=== PATIENT | female | born 1985 | race Caucasian/White ===

== ENCOUNTER → 2017-07-25 | Outpatient (CLI) | payer OTHER ==
--- NOTE | 2017-07-25 23:16 | MR ---
EXAMINATION TYPE: MR brain/cspine wo/w DATE OF EXAM: 07/25/2017 COMPARISON: NONE HISTORY: Pt has No Symptoms...Check up MS follow-up TECHNIQUE: Multiplanar, multisequence images of the brain and brainstem is performed without and with IV contras t, utilizing 6.0 mL intravenous Gadavist . FINDINGS: Brain On the FLAIR and T2 images there is extensive abnormal increased signal in the periventricular white matter. There is coalescent density that measures up to 1.5 cm in thickness. There is also involvemen t of the corpus callosum. There is thinning of corpus callosum. There is no evidence of a cortical in farct. Brainstem has normal signal pattern. Sella turcica appears normal. The contrast images show no pathologic enhancement. Cervical spine The cervical vertebrae normal alignment. Disc spaces are fairly normal. Brainstem is intact. There is no spinal stenosis. There is no evidence of cervical disc herniation. There is abnormal increased si gnal on the T2 images within the cervical cord at C6 and C7. This is in the midline and consistent wi th a syrinx. Contrast images show no pathologic enhancement. There is no evidence of a mass in the ce rvical cord. CONCLUSION: Extensive: Extensive coalescent matter lesions consistent with demyelinating disease in this relative ly young patient. There is no significant change compared to old MR scan of 10/29/2014. I do not see an y new disease. There is a small syrinx in the cervical spinal cord at C6-7 that appears stable compared to old exam. No evidence of any new cervical spine disease.
== END | disposition home or self-care (01) ==
LOC: RADMRIMAIN 19:24
PROVIDERS: ATTEND Psychiatry & Neurology Neurology
DX: G95.0 Syringomyelia and syringobulbia (principal); G93.9 Disorder of brain, unspecified; G35 Multiple sclerosis
CPT/HCPCS: 70553; 72156; A9581

== ENCOUNTER → 2019-05-06 | Outpatient (CLI) | payer OTHER ==
--- NOTE | 2019-05-06 15:00 | MR ---
MRI BRAIN WITH CONTRAST CLINICAL HISTORY: 07/25/2017 TECHNIQUE: Multiplanar, multisequence imaging of the brain and brainstem is performed without and wit h IV contrast, 7.5 mL Gadavist is administered intravenously. Demyelinating disease protocol with ad ditional Sagittal Flair sequence performed. Comparison: 07/25/2017 FINDINGS: T2 Lesions Present : Yes Approximate Number of Lesions: Too numerous and too confluent account Locations Identified : Pericallosal, Periventricular, Juxtacortical, temporal. Size of Largest Lesion(s): Largest lesion not confluent left centrum semioval bilaterally measures 1.5 cm unchanged from prior s tudy. Largest lesion right frontal region measures 1.5 cm unchanged from prior study. Enhancing Lesion(s) Present: No Change from Prior: No interval change Diffusion weighted images demonstrate no evidence of a recent infarct or other diffusion abnormality. There is no worrisome extra-axial fluid collection. The ventricular system and cisternal spaces ar e normal in size and appearance. The brain volume is age appropriate. Midline structures demonstrate normal morphology. The craniocervical junction appears within normal limits. Post contrast images demonstrate no abnormal enhancement. The dural venous sinuses appear pa tent. Because retention cyst or polyp left maxillary sinus with mild mucosal thickening. IMPRESSION: 1. Stable changes of advanced multiple sclerosis.
== END | disposition home or self-care (01) ==
LOC: RADMRIMAIN 13:05
PROVIDERS: ATTEND Psychiatry & Neurology Neurology
DX: G35 Multiple sclerosis (principal)
CPT/HCPCS: 70553

== ENCOUNTER → 2021-04-10 | Outpatient (CLI) | payer OTHER ==
--- NOTE | 2021-04-11 04:26 | MR ---
EXAMINATION TYPE: MR brain wo/w con DATE OF EXAM: 04/10/2021 COMPARISON: 05/06/2019 HISTORY: MS follow up, history of weakness and numbness of right side. CONTRAST: Standard multiplanar, multisequence MRI departmental protocol utilizing 7.5 mL intravenous Gadavist g adolinium contrast. Ventricles have normal size. There is no mass effect nor midline shift. There is no evidence of intra cranial hemorrhage. There is extensive abnormal white matter increased signal around the lateral vent ricles. There is coalescent areas that measure up to 2 cm. There is 1 cm area of cortical increased s ignal in the lateral right temporal lobe. The brainstem is intact. Cerebellum is intact. There is thi nning of the corpus callosum with extensive increased signal. Diffusion images show no sign of an acute infarct. I see no pathologic enhancement. There is normal e nhancement of the venous sinuses. IMPRESSION: Extensive coalescent white matter increased signal around the lateral ventricles and also involving t he corpus callosum and consistent with severe demyelinating disease. This appears not significantly d ifferent than old exam.
== END | disposition home or self-care (01) ==
LOC: RADMRIMAIN 09:52
PROVIDERS: ATTEND Psychiatry & Neurology Neurology
DX: G35 Multiple sclerosis (principal)
CPT/HCPCS: 70553; A9585

== ENCOUNTER 2021-12-30 05:38 | Inpatient (IN) | payer OTHER ==
[2021-12-27 15:59] VITALS: BMI 32.3
--- NOTE | 2021-12-29 18:19 | P.HPOB ---
History of Present Illness H&P Date: 12/29/21 Chief Complaint: Repeat section This patient is a pleasant 36-year-old 4 para 2 female estimated date of confinement 01/06/2002 estimated gestational age 39-0/7 weeks who presents to labor and delivery for elective repeat section. Patient's care was per Dr. Ordoñez until approximately 25 weeks. She subsequent a transferred to dc after his departure. Patient's care is complicated by maternal multiple sclerosis. She also has used marijuana on and off throughout the . otherwise has been uncomplicated. Patient had a previous section with her second for breech presentation as requested repeat . Review of Systems Genitourinary: Reports Menstruation: Reports amenorrhea Past Medical History Past Medical History: GERD/Reflux, Neurologic Disorder Additional Past Medical History / Comment(s): Farideh (STATES NO CURRENT SYMPTOMS), LMP MARCH 2021 History of Any Multi-Drug Resistant Organisms: None Reported Past Surgical History: Section Additional Past Surgical History / Comment(s): wisdom teeth Past Anesthesia/Blood Transfusion Reactions: No Reported Reaction Past Psychological History: No Psychological Hx Reported Smoking Status: Current every day smoker Past Alcohol Use History: None Reported Additional Past Alcohol Use History / Comment(s): SMOKES 1/2 PPD, STARTED SMOKING AGE 16 Past Drug Use History: Marijuana Additional Drug Use History / Comment(s): OCCASIONAL MARIJUANA. - Past Family History Mother Family Medical History: No Reported History Medications and Allergies Home Medications Medication Instructions Recorded Confirmed Type Vit No.124/Iron/Folic 1 each PO DAILY 06/18/15 12/27/21 History [ Vitamin Tablet] Acetaminophen [Tylenol Extra 500 - 1,000 mg PO DIRECTED PRN 12/27/21 12/27/21 History Strength] Calcium Carbonate [Tums] 500 mg PO DIRECTED PRN 12/27/21 12/27/21 History Allergies Allergy/AdvReac Type Severity Reaction Status Date / Time No Known Allergies Allergy Verified 12/27/21 15:49 Exam - OBG Physical Exam Abdomen: bowel sounds normal, no diffuse tenderness, no bruit present, no guarding noted, no hepatomegaly, no splenomegaly, no mass Vulva: both: normal Vagina: normal moisture, no discharge Cervix: no lesion, no discharge Uterus: enlarged (Fundal height is 38 cm) Results blood work shows she is O positive, rubella immune, RPR nonreactive, hepatitis B negative, HIV is nonreactive, Glucola was 150 with a normal three- hour gtt., group B strep was negative, ultrasounds of shown normal growth and anatomy. Assessment and Plan Assessment: This is a pleasant 36-year-old 4 para 2 female 39-0/7 weeks gestation with previous section requesting repeat. Patient also has a history of multiple sclerosis and I have discussed this with the patient and I have just most recently discuss with anesthesia. Most likely after reviewing the MRI there are going to recommend general anesthetic for delivery. Patient does understand the surgery and risks including risks of infection, bleeding, possibl e injury bowel, bladder, vessels, and/or other organs. All the patient's questions are answered and a written consent is obtained. Patient also has history of substance abuse and we'll check a toxicology screen. (1) 39 weeks gestation of Status: Acute Code(s): Z3A.39 - 39 WEEKS GESTATION OF SNOMED Code(s): 90471692 (2) Previous delivery affecting Status: Acute Code(s): O34.219 - MATERNAL CARE FOR UNSP TYPE SCAR FROM PREVIOUS DEL SNOMED Code(s): 790187451 (3) Multiple sclerosis Status: Acute Code(s): G35 - MULTIPLE SCLEROSIS SNOMED Code(s): 75241504 (4) Substance abuse complicating in third trimester, antepartum Status: Acute Code(s): O99.323 - DRUG USE COMPLICATING , THIRD TRIMESTER SNOMED Code(s): 27540706
[2021-12-30] MEDS ORDERED: CITRIC ACID-SODIUM CITRATE 15 ML CUP PO ONE (06:01)
[2021-12-30] MEDS ORDERED: LACTATED RINGERS 1,000 ML IV ONE (06:01)
[2021-12-30 06:14] LABS: Basophils # (A) 0.1 k/uL (0-0.2); Basophils % (A) 1 %; Eosinophils # (A) 0.3 k/uL (0-0.7); Eosinophils % (A) 2 %; HCT 38.9 % (34.0-46.0); HGB 12.9 gm/dL (11.4-16.0); Lymphocytes # (A) 2.2 k/uL (1.0-4.8); Lymphocytes % (A) 20 %; MCHC 33.3 g/dL (31.0-37.0); MCV 96.3 fL (80.0-100.0); Mean Platelet Volume 8.2; Monocytes # (A) 0.5 k/uL (0-1.0); Monocytes % (A) 5 %; Neutrophils # (A) 7.6 k/uL (1.3-7.7); Neutrophils % (A) 70 %; Platelet Count 209 k/uL (150-450); RBC 4.04 m/uL (3.80-5.40); RDW 13.1 % (11.5-15.5); WBC 10.9 k/uL (3.8-10.6)
[2021-12-30] MEDS: LACTATED RINGERS 1,000 ML IV SCH ×2 (07:22→20:28)
[2021-12-30] MEDS ORDERED: diphenhydrAMINE 25 MG CAP PO PRN (07:47)
[2021-12-30] MEDS ORDERED: diphenhydrAMINE 50 MG/ML 1 ML VIAL IVP PRN (07:47)
[2021-12-30] MEDS ORDERED: METOCLOPRAMIDE 5 MG/ML 2 ML VIAL IVP PRN (07:47)
[2021-12-30] MEDS ORDERED: ONDANSETRON 4 MG/2 ML VIAL IVP PRN (07:47)
[2021-12-30] MEDS ORDERED: ZOLPIDEM 5 MG TAB PO PRN (07:47)
[2021-12-30] MEDS ORDERED: NALOXONE 0.4 MG/ML 1 ML VIAL IV PRN (07:47)
[2021-12-30] MEDS ORDERED: LANOLIN CREAM 5 GM TUBE TOPICAL PRN (07:47)
[2021-12-30] MEDS ORDERED: SIMETHICONE 80 MG CHEWABLE PO PRN (07:47)
[2021-12-30] MEDS ORDERED: HYDROmorphone PCA 10 MG/50 ML BAG IV PRN (07:47)
[2021-12-30] MEDS ORDERED: ONDANSETRON 4 MG/2 ML VIAL ONE (07:56)
[2021-12-30] MEDS ORDERED: NALBUPHINE 10 MG/ML (1 ML AMP) ONE (07:56)
[2021-12-30] MEDS ORDERED: SUCCINYLCHOLINE CHLORIDE 100 MG/5 ML SYR IV ONE (07:56)
[2021-12-30] MEDS ORDERED: HYDROmorphone (PF) 1 MG/ML ONE (07:56)
[2021-12-30] MEDS ORDERED: OXYTOCIN 30 UNITS/500 ML NS BAG IV ONE (07:56)
[2021-12-30] MEDS ORDERED: KETOROLAC 15 MG/ML 1 ML VIAL ONE (07:56)
[2021-12-30] MEDS ORDERED: fentaNYL (PF) 50 MCG/ML 2 ML AMP ONE (07:56)
[2021-12-30] MEDS ORDERED: PROPOFOL 10 MG/ML 20 ML VIAL IV ONE (07:56)
[2021-12-30] MEDS ORDERED: OXYTOCIN 30 UNITS/500 ML NS 30 UNIT in SALINE 1 500ML.BAG IV SCH (08:00)
[2021-12-30 08:12] LABS: Amphetamine Screen,Urine Not Detected (NotDetected); Barbiturate Screen,Urine Not Detected (NotDetected); Benzodiazepines Screen,Urine Not Detected (NotDetected); Cocaine Screen,Urine Not Detected (NotDetected); Methadone Screen, Urine Not Detected (NotDetected); Opiate Screen,Urine Not Detected (NotDetected); Oxycodone Screen, Urine Not Detected (NotDetected); Phencyclidine Screen,Urine Not Detected (NotDetected); Tricyclic Antidepressant,Urine Not Detected (NotDetected); Urn Cannabinoid Scrn Detected (NotDetected)
--- NOTE | 2021-12-30 08:47 | P.OP ---
Date of Procedure: 12/30/21 Preoperative Diagnosis: #1: 39-0/7 week intrauterine . #2: Previous section desires repeat. #3: Maternal multiple sclerosis. #4: Substance abuse Postoperative Diagnosis: Same Procedure(s) Performed: Repeat low transverse section Anesthesia: ALONDRA Surgeon: Artis Parnell Zone Supervisor Firearms #1: Rosalie Gonzales Estimated Blood Loss (ml): 600 Pathology: other (Placenta) Condition: stable Disposition: floor Indications for Procedure: Please see dictated H&P for intimate details of this patient's admission. In brief summary this is a pleasant 36-year-old multigravida patient who was admitted to labor and delivery for requested repeat section. Patient has total sclerosis and therefore does need general anesthetic for delivery. Patient understands also the risks of surgery including risks of infection, bleeding, possible injury bowel, bladder, vessels, and/or other organs. All the patient's questions are answered written consent is obtained. Operative Findings: This is a vigorous viable male Apgars 8 and 9 delivery time was 0809 hrs. Description of Procedure: This patient has a Gurrola catheter placed to straight drain. She is subsequently taken to the operating room where a timeout is done. Patient is laid in the supine position and she has abdominal prep and drape. With all surgeons and ancillary staff in place, she subsequent undergoes general endotracheal anesthesia without incident. With adequate level of anesthesia, scalpels taken the previous Pfannenstiel incision is incised. A second scalpel is taken down the fascia and the fascia scored with a knife. Fascial incision extended bilaterally using the Vance scissors. Fascia is dissected off the rectus muscles sharply. Rectus muscles are the peritoneum identified and entered sharply. Peritoneal incision extended superior and inferior without difficulty. Bladder blade is then placed. Bladder peritoneum was taken sharply off the lower uterine segment. Scalpels and taken a low transverse uterine incision is then made. A hemostat was then used to enter the uterine cavity bluntly and there is loss of clear fluid. The uterine incision is extended bluntly. 's head was guided through the incision with fundal pressure. Mouth and nares are bulb suctioned. There is a body cord but no evidence of a nuchal cord. With more fundal pressure deliver the rest this 's body. This is a vigorous viable male infant Apgars are 8 and 9 delivery time was 0809 hrs. After delivery of the infant the umbilical cord is doubly clamped and cut is taken over the warmer. The placenta is then manually extracted intact. Uterus is then externalized. Uterine incision demarcated with Hansen clamps and closed in 0 Vicryl running locked fashion 2 layers. Excellent hemostasis is noted. Excess fluid is removed from the abdomen and pelvis. Uterus, tubes, ovaries appear normal for term gestation. The parietal peritoneum was then closed in 0 Vicryl running fashion. The rectus muscles reapproximated in 0 Vicryl interrupted fashion. Fascial incision is then closed using 0 PDS. Fascial incision is intact and hemostatic. Subcutaneous tissues and closed using a 3-0 Vicryl. Skin is and closed using su. All counts are correct 3. There are no complications. Infant is taken to special care nursery for observation and mother stating her birthing suite in satisfactory condition.
[2021-12-30] MEDS: SENNOSIDES-DOCUSATE SODIUM 1 EACH TAB PO SCH ×2 (09:23→20:10)
[2021-12-30] MEDS: IBUPROFEN 600 MG TAB PO SCH ×2 (20:09)
[2021-12-30] MEDS: ACETAMINOPHEN TAB 500 MG TAB PO SCH (20:28)
[2021-12-30] MEDS: KETOROLAC 15 MG/ML 1 ML VIAL IVP SCH (20:28)
[2021-12-31] MEDS: ACETAMINOPHEN TAB 500 MG TAB PO SCH ×5 (00:12→23:28)
[2021-12-31] MEDS: KETOROLAC 15 MG/ML 1 ML VIAL IVP SCH ×2 (00:14→02:17)
[2021-12-31] MEDS: LACTATED RINGERS 1,000 ML IV SCH ×3 (00:14→20:48)
[2021-12-31] MEDS: IBUPROFEN 600 MG TAB PO SCH ×3 (03:56→20:13)
[2021-12-31 07:00] LABS: Basophils % (A) 0 %; Eosinophils # (A) 0.2 k/uL (0-0.7); Eosinophils % (A) 1 %; HCT 36.8 % (34.0-46.0); HGB 11.9 gm/dL (11.4-16.0); Lymphocytes # (A) 1.4 k/uL (1.0-4.8); Lymphocytes % (A) 11 %; MCH 31.8 pg (25.0-35.0); MCHC 32.4 g/dL (31.0-37.0); Mean Platelet Volume 8.8; Monocytes # (A) 0.5 k/uL (0-1.0); Monocytes % (A) 4 %; Neutrophils % (A) 82 %; Platelet Count 153 k/uL (150-450); RBC 3.76 m/uL (3.80-5.40); RDW 13.3 % (11.5-15.5); WBC 12.2 k/uL (3.8-10.6)
[2021-12-31] MEDS: SENNOSIDES-DOCUSATE SODIUM 1 EACH TAB PO SCH ×2 (07:37→20:10)
--- NOTE | 2021-12-31 12:51 | P.PNOBGPC ---
Subjective - Subjective Principal diagnosis: Status post repeat POD #1 Interval history: Patient is doing well. She is ambulating. Lochia is decreasing. She is passing flatus but no bowel movement yet. Pain is fairly well controlled with ibuprofen and Tylenol. Baby is in level I nursery. She plans to breast-feed eventually. Patient reports: Reports appetite normal, Reports voiding normally, Reports pain well controlled, Reports ambulating normally [place]: other (And level I nursery) Objective - Vital Signs Latest vital signs: Vital Signs Temp Pulse Resp BP Pulse Ox 12/31/21 07:42 97.9 F 74 16 98/64 12/31/21 04:00 97.7 F 68 16 100/62 95 12/31/21 00:00 98.5 F 72 16 97/57 96 12/30/21 20:00 98.3 F 82 16 121/77 96 12/30/21 15:40 98.4 F 87 16 112/64 99 Intake and Output 12/30/21 12/31/21 12/31/21 22:59 06:59 14:59 Intake Total 480 Balance 480 Intake: Oral 480 Other: # Voids 0 3 - Exam Extremities: Present: normal. Absent: tenderness, edema Abdomen: Present: normal appearance, soft. Absent: distention, tenderness Incision: Present: normal, dry, intact. Absent: erythematous Uterus: Present: normal, firm. Absent: tenderness - Labs Labs: Abnormal Lab Results - Last 24 Hours (Table) 12/31/21 Range/Units 06:34 WBC 12.2 H (3.8-10.6) k/uL RBC 3.76 L (3.80-5.40) m/uL Neutrophils # 10.0 H (1.3-7.7) k/uL Assessment and Plan Assessment: Status post repeat low transverse section postoperative day #1 Plan: Continue with postoperative and care. Diet as tolerated. May shower.
[2022-01-01] MEDS: IBUPROFEN 600 MG TAB PO SCH ×3 (06:04→16:14)
[2022-01-01] MEDS: ACETAMINOPHEN TAB 500 MG TAB PO SCH ×3 (08:19→17:24)
--- NOTE | 2022-01-01 10:43 | P.PNOBGPC ---
Subjective - Subjective Principal diagnosis: Status post repeat section postoperative day #2 Interval history: Patient is doing well. She is ambulating. She is passing flatus and bowel movements. Pain is well-controlled with oral pain medication. Lochia is minimal. Her breast milk has not come in yet but she would like to start pumping to get some colostrum for her baby. Patient reports: Reports appetite normal, Reports voiding normally, Reports pain well controlled [place]: other (In level I nursery) Objective - Vital Signs Latest vital signs: Vital Signs Temp Pulse Resp BP 01/01/22 00:00 98.0 F 77 16 111/69 12/31/21 15:44 98.2 F 72 16 111/63 Intake and Output 12/31/21 01/01/22 01/01/22 22:59 06:59 14:59 Intake Total 960 Balance 960 Intake: Oral 960 Other: # Voids 1 # Bowel Movements 1 - Exam Extremities: Present: normal. Absent: tenderness Abdomen: Present: normal appearance, soft (Positive bowel sounds 4). Absent: distention, tenderness Incision: Present: normal, dry, intact Uterus: Present: normal, firm. Absent: tenderness Assessment and Plan Assessment: Status post repeat low transverse section postoperative day #2 Plan: Continue with postoperative and care today. Anticipate discharge home tomorrow. Will arrange a breast pump while she is here.
[2022-01-01] MEDS: SENNOSIDES-DOCUSATE SODIUM 1 EACH TAB PO SCH ×2 (12:43→23:37)
[2022-01-02] MEDS: IBUPROFEN 600 MG TAB PO SCH ×3 (00:55→08:35)
[2022-01-02] MEDS: ACETAMINOPHEN TAB 500 MG TAB PO SCH (00:55)
[2022-01-02 08:34] VITALS: BP 118/71; PULSE 92; RESP 16; TEMP 97.9
[2022-01-02] MEDS: SENNOSIDES-DOCUSATE SODIUM 1 EACH TAB PO SCH (08:36)
--- NOTE | 2022-01-02 11:47 | P.DS ---
Providers Date of admission: 12/30/21 05:38 Expected date of discharge: 01/02/22 Attending physician: Artis Parnell Primary care physician: Stated None Hospital Course: This is a 36-year-old female 4 para 2 at 39-0/7 weeks who presented for repeat section. She underwent a repeat low transverse section on 12/30/2021 under general anesthesia and delivered a viable male with scores of 8 at 1 minute and 9 at 5 minutes and infant weight of 6 lbs. 11 oz. Her postoperative and course of been essentially uncomplicated. Lochia has been decreasing. Pain is well-controlled on Tylenol and ibuprofen. She is passing flatus and bowel movement. She is urinating without difficulty. She did pump her breast milk for a short time to get colostrum for her baby however she does not plan on continuing breast-feeding due to going back on her medication for MS. Her baby was in level I nursery but just came out of the nursery today. Vital signs are stable. Abdomen is soft with positive bowel sounds 4. Incision is clean dry and intact. Extremities show negative Homans. Impression is status post repeat section postoperative day #3. Plan is to discharge home today. Routine postoperative and instructions are given. Pennie will be removed and Steri-Strips placed prior to discharge. She will be given a prescription for ibuprofen. She is advised to follow up with Dr. Parnell in the office in 1 week for a postoperative check and in 6 weeks for a check. She is advised to call the office if she has any further questions or concerns prior to her appointment time. Procedures: Repeat low transverse section for delivery of a viable male on 12/30/2021 Patient Condition at Discharge: Stable Plan - Discharge Summary Discharge Rx Participant: Yes New Discharge Prescriptions: New Ibuprofen [Motrin] 600 mg PO Q6H #30 tab Continue Vit No.124/Iron/Folic [ Vitamin Tablet] 1 each PO DAILY No Action Calcium Carbonate [Tums] 500 mg PO DIRECTED PRN PRN Reason: Heartburn Acetaminophen [Tylenol Extra Strength] 500 - 1,000 mg PO DIRECTED PRN PRN Reason: Pain Discharge Medication List Vit No.124/Iron/Folic [ Vitamin Tablet] 1 each PO DAILY 06/18/15 [History] Acetaminophen [Tylenol Extra Strength] 500 - 1,000 mg PO DIRECTED PRN 12/27/21 [History] Calcium Carbonate [Tums] 500 mg PO DIRECTED PRN 12/27/21 [History] Ibuprofen [Motrin] 600 mg PO Q6H #30 tab 01/02/22 [Rx] Follow up Appointment(s)/Referral(s): Artis Parnell MD [STAFF PHYSICIAN] - 02/11/22 11:15 am (Post Op 01-07-2022 at 01:30 p.m.) Patient Instructions/Handouts: (DC) Activity/Diet/Wound Care/Special Instructions: Instructions 1. Do not begin any exercise program for 3 weeks. 2. Do not resume sexual relations for 3 weeks or longer if uncomfortable. 3. You may take tub baths or showers at any time. 4. You may use tampons if desired after 3 weeks. 5. Keep the area of episiotomy (stitches) clean and dry. 6. If you are not nursing, wear a good fitting, supportive bra during the day and limit fluid intake for at least 1 week to prevent breast engorgement. 7. Call the office, [phone], within the next week to make appointment for your 6 week checkup if it has not already been made. 8. Report any of the following occurrences to the doctor promptly: a. Heavy, excessive bleeding b. Chills, fever c. Burning or frequency of urination d. Pain or redness and breasts if nursing e. Increasing pain or swelling in episiotomy (stitches). In addition to the above instructions, the following additional should be followed: 1. No heavy lifting or straining (exercising) until after 6 week checkup. 2. Keep abdominal incision clean and dry: You may wear a dressing if more comfortable. 3. Make office appointment for 10 days after going home or as instructed by her doctor. Discharge Disposition: HOME SELF-CARE Care Plan Goals (MU): Post Operative Appointment 01-07-2022 @ 1:30 pm
== END 2022-01-02 13:07 | disposition home or self-care (01) | DRG 787 ==
LOC: 4FBP 05:38
PROVIDERS: ADMIT Obstetrics & Gynecology; ATTEND Obstetrics & Gynecology
PROC: 10D00Z1 Extraction of Products of Conception, Low, Open Approach (ICD-10-PCS; principal; 2021-12-30 08:07)
DX: O34.211 Maternal care for low transverse scar from previous cesarean delivery (principal); O99.324 Drug use complicating childbirth; O99.354 Diseases of the nervous system complicating childbirth; O99.334 Smoking (tobacco) complicating childbirth; Z37.0 Single live birth; Z3A.39 39 weeks gestation of pregnancy; G35 Multiple sclerosis; F12.10 Cannabis abuse, uncomplicated; K21.9 Gastro-esophageal reflux disease without esophagitis; O99.62 Diseases of the digestive system complicating childbirth
CPT/HCPCS: 80306; 85025; 86850; 86900; 86901